=== PATIENT | male | born 1970 | race Two or more races ===

== ENCOUNTER 2017-03-16 02:37 | Emergency (ER) | payer SELFPAY ==
[2017-03-16 02:43] VITALS: BP 161/87; BMI 28.3
--- NOTE | 2017-03-16 02:53 | DR.GENAD ---
HPI - PCP Primary Care Physician: NFD - Complaint/Symptoms Chief Complaint:: "About 2 hours ago I started having bad stomach pain and diarrhea. I have also thrown up one time." - Nurses notes reviewed Nurses Notes Review: Yes - Source History Provided: Patient - Mode of Arrival Mode of Arrival: Ambulatory - Timing Onset of Chief Complaint: 03/16/17 Came on: Gradually - Duration Duration: Intermittent How lon Duration: Hours - Location Location: stomach - Severity Severity: Moderate - Modifying Factors Worsens:: food - Associated Signs and Symptoms Associated Signs and Symptoms: vomiting and diarrhea PMH - PMH Past Medical History: Yes Past Medical History: Diabetes, Hypertension Past Surgical History: No - Family History History of Family Medical Conditions: Yes Family Medical History: Diabetes Mellitus, Cancer, Hypertension - Social History Does patient currently use any type of tobacco product: Yes Have you used tobacco products in the last 12 months: Yes Type of Tobacco Use: Cigarettes Does any household member use tobacco: No Alcohol Use: None Do you use any recreational Drugs:: No Lives With: Spouse, Family Lives Where: Home - infectious screening In the last 2 months have you had wt loss of >10#?: NO Have you had fever, night sweats or hemotysis?: No Have you traveled outside the country in the last 6 months?: No Isolation: Standard ROS - Review of Systems Constitutional: No Symptoms Reported Eyes: No Symptoms Reported ENTM: No Symptoms Reported Respiratoy: No Symptoms Reported Cardiovascular: No Symptoms Reported Gastrointestinal/Abdominal: Diarrhea, Nausea, Vomiting Genitourinary: No Symptoms Reported Neurological: No Symptoms Reported Musculoskeletal: No Symptoms Reported Integumentary: No Symptoms Reported Hematologic/Lymphatic: No Symptoms Reported Endocrine: No Symptoms Reported Psychiatric: No Symptoms Reported PE - Vital Signs Vitals: Temperature 98 F Pulse Rate 80 Respiratory Rate 20 Blood Pressure [Right Arm] 143/78 Blood Pressure 161/87 O2 Sat by Pulse Oximetry 99 - General Limitations: No Limitations General Appearance: Alert - Head Head Exam: Normal Inspection - Eyes Eye exam: EOMI. negative: Scleral Icterus, Conjunctival Injection - ENT ENT Exam: Normal Exam External Ear Exam: Normal External Inspection - Neck Neck Exam: Normal Inspection, Full ROM, Trachea Midline - Chest Chest Inspection: Normal Inspection - Respiratory Respiratory Exam: Normal Lung Sounds Bilat. negative: Accessory Muscle Use, Respiratory Distress Respiratory Exam: Bilateral Clear to Auscultation - Cardiovascular Cardiovascular Exam: Regular Rate - Abdominal Exam Abdominal Exam: Normal Inspection, Soft, Tenderness (both lower quadrants), Dimnished Bowel Sounds. negative: Normal Bowel Sounds, Distention, Guarding Abdominal Tenderness: RLQ, LUQ - Extremities Extremities Exam: Normal Inspection, Full ROM - Back Back Exam: Normal Inspection - Neurologic Neurological Exam: Alert, Oriented X3, CN II-XII Intact - Psychiatric Psychiatric Exam: Normal Mood - Skin Skin Exam: Intact, Normal Color ROR - Labs Reviewed Result Diagrams: 03/16/17 03:15 03/16/17 03:15 Laboratory: WBC 14.4 X10^3/uL (3.6-10.0) H 03/16/17 03:15 RBC 5.46 X10^6/uL (4.7-6.0) 03/16/17 03:15 Hgb 16.5 g/dL (13.5-18.0) 03/16/17 03:15 Hct 47.5 % (42.0-54.0) 03/16/17 03:15 MCV 87.1 fL (80.0-100.0) 03/16/17 03:15 MCH 30.3 pg (27.0-34.0) 03/16/17 03:15 MCHC 34.8 g/dL (33.0-35.0) 03/16/17 03:15 RDW 13.4 % (11.6-16.5) 03/16/17 03:15 Plt Count 149 X10^3/uL (150.0-450.0) L 03/16/17 03:15 MPV 10.2 fL (7.4-11.0) 03/16/17 03:15 Neut % 59.8 % (42.0-75.0) 03/16/17 03:15 Lymph % 26.0 % (21.0-51.0) 03/16/17 03:15 Glenn % 6.3 % (0.0-13.0) 03/16/17 03:15 Eos % 7.0 % (0.9-2.9) H 03/16/17 03:15 Baso % 0.9 % (0.2-1.0) 03/16/17 03:15 Neut # 8.6 x10^3/uL (2.2-4.8) H 03/16/17 03:15 Lymph # 3.7 X10^3/uL (1.3-2.9) H 03/16/17 03:15 Glenn # 0.9 x10^3/uL (0.3-0.8) H 03/16/17 03:15 Eos # 1.0 x10^3/uL (0.0-0.2) H 03/16/17 03:15 Baso # 0.1 X10^3/uL (0.0-0.1) 03/16/17 03:15 Absolute Nucleated RBC 0.0 /100WBC 03/16/17 03:15 Sodium 141 mmol/L (136-145) 03/16/17 03:15 Corrected Sodium 146 mmol/L (136-145) H 03/16/17 03:15 Potassium 4.4 mmol/L (3.5-5.1) 03/16/17 03:15 Chloride 103 mmol/L (98-107) 03/16/17 03:15 Carbon Dioxide 31.1 mmol/L (21-32) 03/16/17 03:15 BUN 9 mg/dL (7-18) 03/16/17 03:15 Creatinine 0.90 mg/dL (0.70-1.30) 03/16/17 03:15 Est GFR (MDRD) Af Amer > 60 (>60) 03/16/17 03:15 Est GFR (MDRD) Non-Af > 60 (>60) 03/16/17 03:15 Glucose 295 mg/dL (65-99) H 03/16/17 03:15 Calcium 8.7 mg/dL (8.5-10.1) 03/16/17 03:15 Corrected Calcium TNP 03/16/17 03:15 Total Bilirubin 0.30 mg/dL (0.2-1.0) 03/16/17 03:15 AST 12 Units/L (15-37) L 03/16/17 03:15 ALT 25 Units/L (12-78) 03/16/17 03:15 Alkaline Phosphatase 113 Units/L (46-116) 03/16/17 03:15 Total Protein 7.0 g/dL (6.4-8.2) 03/16/17 03:15 Albumin 3.6 g/dL (3.4-5.0) 03/16/17 03:15 Globulin 3.4 g/dL (2.5-4.5) 03/16/17 03:15 Albumin/Globulin Ratio 1.1 Ratio (1.1-2.1) 03/16/17 03:15 Amylase 92 Units/L (25-115) 03/16/17 03:15 Lipase 164 Units/L (73-393) 03/16/17 03:15 - XRAY XRAY Interpreted by: Radiologist XRAY Findings: AAS: normal - Diagnosis Discharge Problem: Diabetes Qualifiers: Diabetes mellitus type: type 2 Diabetes mellitus complication status: without complication 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
[2017-03-16] MEDS ORDERED: DEMEROL INJ IVP ONE (03:09)
[2017-03-16] MEDS ORDERED: ZOFRAN INJ 4 MG VIAL IVP ONE (03:09)
[2017-03-16] MEDS ORDERED: ZOFRAN INJ 4 MG VIAL ONE (03:13)
[2017-03-16] MEDS ORDERED: DEMEROL INJ ONE (03:14)
[2017-03-16 03:26] LABS: BASOPHILS # (AUTO) 0.1 X10^3/uL (0.0-0.1); BASOPHILS % (AUTO) 0.9 % (0.2-1.0); HEMATOCRIT 47.5 % (42.0-54.0); HEMOGLOBIN 16.5 g/dL (13.5-18.0); LYMPHOCYTES # (AUTO) 3.7 X10^3/uL (1.3-2.9); MEAN CORPUSCULAR HEMOGLOBIN 30.3 pg (27.0-34.0); MEAN CORPUSCULAR HGB CONC 34.8 g/dL (33.0-35.0); MEAN CORPUSCULAR VOLUME 87.1 fL (80.0-100.0); MEAN PLATELET VOLUME 10.2 fL (7.4-11.0); MONOCYTES # (AUTO) 0.9 x10^3/uL (0.3-0.8); MONOCYTES % (AUTO) 6.3 % (0.0-13.0); NEUTROPHILS # (AUTO) 8.6 x10^3/uL (2.2-4.8); NEUTROPHILS % (AUTO) 59.8 % (42.0-75.0); PLATELET COUNT 149 X10^3/uL (150.0-450.0); RED BLOOD COUNT 5.46 X10^6/uL (4.7-6.0); RED CELL DISTRIBUTION WIDTH 13.4 % (11.6-16.5); WHITE BLOOD COUNT 14.4 X10^3/uL (3.6-10.0)
[2017-03-16 03:34] LABS: ALANINE AMINOTRANSFERASE 25 Units/L (12-78); ALBUMIN 3.6 g/dL (3.4-5.0); ALKALINE PHOSPHATASE 113 Units/L (46-116); AMYLASE 92 Units/L (25-115); ASPARTATE AMINO TRANSFERASE 12 Units/L (15-37); BLOOD UREA NITROGEN 9 mg/dL (7-18); CALCIUM 8.7 mg/dL (8.5-10.1); CARBON DIOXIDE 31.1 mmol/L (21-32); CHLORIDE 103 mmol/L (98-107); COR NA(FOR HYPERGLY) 146 mmol/L (136-145); GLUCOSE 295 mg/dL (65-99); LIPASE 164 Units/L (73-393); SODIUM 141 mmol/L (136-145); eGFR BLACK RACES > 60 (>60); eGFR NON BLACK RACES > 60 (>60)
--- NOTE | 2017-03-16 03:43 | RAD ---
EXAM: Abdomen series and Chest x-ray INDICATION: Abdominal pain COMPARISION: No priors TECHNIQUE: Abdomen flat and upright, two views and PA view of the chest, single view FINDINGS: The lungs are clear. No pneumothorax or pleural effusion. The cardiac silhouette and mediastinum are normal. The bowel gas pattern is nonobstructed. No abnormal mass effect or calcification. The regio nal skeleton is intact. No free air is seen under the hemidiaphragms. IMPRESSION: Normal abdominal series and chest x-ray. Reported By:
[2017-03-16] MEDS ORDERED: NS 1000 ML 1,000 ML IV ONE (04:30)
[2017-03-16] MEDS ORDERED: HumuLIN R IV ONE (04:32)
[2017-03-16] MEDS ORDERED: NS 1000 ML 1,000 ML ONE (04:36)
[2017-03-16] MEDS ORDERED: HumuLIN R ONE (04:37)
[2017-03-16 05:19] LABS: BILIRUBIN,URINE NEGATIVE (NEGATIVE); BLOOD/HEMOGLOBIN,URINE NEGATIVE (NEGATIVE); GLUCOSE, URINE 4+ (NEGATIVE); KETONES,URINE NEGATIVE (NEGATIVE); LEUKOCYTE ESTERASE ,URINE NEGATIVE (NEGATIVE); NITRITES,URINE NEGATIVE (NEGATIVE); PROTEIN,URINE NEGATIVE (NEGATIVE); UROBILINOGEN,URINE NORMAL (NORMAL)
[2017-03-16 05:26] LABS: APPEARANCE,URINE CLEAR (CLEAR); COLOR,URINE YELLOW (YELLOW); RBC,URINE NONE SEEN /HPF (NEGATIVE)
[2017-03-16 05:27] LABS: BACTERIA,URINE TRACE /HPF (NEGATIVE); SQUAMOUS EPITHELIAL CELL,UR RARE /HPF (NEGATIVE)
[2017-03-16] MEDS ORDERED: SNACK - Diabetic Appropriate PO SCH (20:00)
== END 2017-03-16 06:00 | disposition home or self-care (01) ==
LOC: ER 02:37
DX: E11.9 Type 2 diabetes mellitus without complications (principal)
CPT/HCPCS: 36415; 74022; 80053; 81001; 82150; 83690; 85025; 96365; 96372; 96374; 96375; 99283; A4216; J1815; J2175; J2405